=== PATIENT | female | born 1945 | race Caucasian/White ===

== ENCOUNTER 2017-04-18 10:27 | Outpatient (CLI) | payer MEDICARE, BC ==
--- NOTE | 2017-04-18 11:34 | RAD ---
CHEST PA AND LATERAL: History: 71-year-old female with dyspnea. Comparison: 12-08-14 FINDINGS: Stable thoracolumbar scoliosis with some stable linear and interstitial increased markings in both l ungs including the lung bases, stable from prior study. No confluent pneumonia or overt edema. Heart size is within normal limits. IMPRESSION: Stable chronic changes. No new process. POS: OFF
== END 2017-04-18 10:28 | disposition home or self-care (01) ==
LOC: RAD 10:27
PROVIDERS: ATTEND Internal Medicine Pulmonary Disease
DX: R06.00 Dyspnea, unspecified (principal)
CPT/HCPCS: 71020

== ENCOUNTER 2017-10-23 11:59 | Outpatient (CLI) | payer MEDICARE, BC | END 2017-10-23 12:00 | disposition home or self-care (01) | LOC: BICMAMMO 11:59 | PROVIDERS: ATTEND Internal Medicine | DX: Z12.31 Encounter for screening mammogram for malignant neoplasm of breast (principal); N64.89 Other specified disorders of breast | CPT/HCPCS: 77063; 77067 ==

== ENCOUNTER 2017-12-21 12:42 | Outpatient (CLI) | payer MEDICARE, BC ==
--- NOTE | 2017-12-21 13:06 | RAD ---
PA AND LATERAL CHEST: History: Dyspnea. FINDINGS: Comparison is made with exam of 04-18-17. The heart size is stable. No lobar consolidation, pneumothoraces or pleural effusions are seen. The a kylee is tortuous. Scoliosis of the spine is again seen. There are post op changes in the lower lumbar spine. IMPRESSION: No radiographic evidence of acute cardiopulmonary process. POS: [facility]
== END 2017-12-21 12:43 | disposition home or self-care (01) ==
LOC: RAD 12:42
PROVIDERS: ATTEND Internal Medicine Pulmonary Disease
DX: R06.00 Dyspnea, unspecified (principal)
CPT/HCPCS: 71046

== ENCOUNTER 2018-01-10 14:18 | Outpatient (CLI) | payer MEDICARE, BC ==
--- NOTE | 2018-01-11 11:36 | PFT ---
PATIENT HISTORY: HEIGHT: 58 IN WEIGHT: 147 SMOKER: NA HOW LONG: NEVER PACKS PER DAY PRODUCTIVE COUGH: LUNG DISEASE: PHYSICIAN INTERPRETATION FINAL REPORT: moderate reduction in expiratory flows and vital capacity is present. Total lung capacity is increased. RV is hyperinflated. RV/TLC hyperexpanded. The patient apparently could not perform diffusing capacity. IMPRESSION: 1. Moderate chronic obstructive pulmonary disease with marked hyperinflation. 2. Unable to do a diffusing capacity. Project Associate: ANASTASIA Mid Level Clinician: ANASTASIA HARLEY
== END 2018-01-10 14:19 | disposition home or self-care (01) ==
LOC: CP 14:18
PROVIDERS: ATTEND Internal Medicine Pulmonary Disease
DX: J44.9 Chronic obstructive pulmonary disease, unspecified (principal); J98.11 Atelectasis
CPT/HCPCS: 94010; 94727

== ENCOUNTER 2018-12-06 09:08 | Outpatient (CLI) | payer MEDICARE, BC ==
--- NOTE | 2018-12-06 12:00 | RAD ---
Esophagram HISTORY: Dysphagia. FINDINGS: Air contrast and single column barium evaluation was performed. Very small sliding hiatal h ernia. Small amount of gastroesophageal reflux. There was decrease in primary and secondary peristalsis. Nonpropulsive tertiary type contractions wer e visible. A 12 mm barium tablet traversed the esophagus without holdup. Fluoroscopy time 0.7 minutes. IMPRESSION: No evidence of obstruction or mass. Small sliding hiatal hernia with small amount of gastroesophageal reflux. Presbyesophagus.
== END 2018-12-06 09:09 | disposition home or self-care (01) ==
LOC: RAD 09:08
PROVIDERS: ATTEND Physician Assistant Medical
DX: R13.10 Dysphagia, unspecified (principal); K21.9 Gastro-esophageal reflux disease without esophagitis; K44.9 Diaphragmatic hernia without obstruction or gangrene; K22.8 Other specified diseases of esophagus
CPT/HCPCS: 36415; 74220; 80053; 80061; 83036; 84439; 84443

== ENCOUNTER 2019-01-31 10:52 | Outpatient (CLI) | payer MEDICARE, BC ==
--- NOTE | 2019-01-31 11:29 | MMO ---
Bilateral MAMMO Bilat Screen [facility]. CLINICAL HISTORY: Patient is 73 years old and is seen for screening. The patient has no family history of breast cancer. The patient has no personal history of cancer. The patient has a history of right cyst aspiration at age 48 - benign. VIEWS: The views performed were: bilateral craniocaudal with tomosynthesis; bilateral mediolateral oblique with tomosynthesis; and right exaggerated craniocaudal. FILMS COMPARED: The present examination has been compared to prior imaging studies performed at [facility] on 08/18/2014, 09/17/2015, 09/22/2016 and 10/23/2017. MAMMOGRAM FINDINGS: There are scattered fibroglandular densities. There are no suspicious masses, suspicious calcifications, or new areas of architectural distortion. IMPRESSION: THERE IS NO MAMMOGRAPHIC EVIDENCE OF MALIGNANCY. A ROUTINE FOLLOW-UP MAMMOGRAM IN 1 YEAR IS RECOMMENDED. THE RESULTS OF THIS EXAM WERE SENT TO THE PATIENT. ACR BI-RADS Category 1 - Negative MAMMOGRAPHY NOTE: 1. A negative mammogram report should not delay a biopsy if a dominant of clinically suspicious mass is present. 2. Approximately 10% to 15% of breast cancers are not detected by mammography. 3. Adenosis and dense breasts may obscure an underlying neoplasm. Reported by: Amie ORTEGA Electonically Signed: [id number]
== END 2019-01-31 10:53 | disposition home or self-care (01) ==
LOC: BICMAMMO 10:52
PROVIDERS: ATTEND Internal Medicine
DX: Z12.31 Encounter for screening mammogram for malignant neoplasm of breast (principal)
CPT/HCPCS: 77063; 77067

== ENCOUNTER 2020-08-10 14:10 | Outpatient (CLI) | payer MEDICARE, BC ==
--- NOTE | 2020-08-10 14:53 | MMO ---
Bilateral MAMMO Bilat Diag [facility]. CLINICAL HISTORY: Patient is 74 years old and is seen for diagnostic exam and pain in the sub-areolar region of the right breast. The patient has no family history of breast cancer. The patient has no personal history of cancer. The patient has a history of right cyst aspiration at age 48 - benign. VIEWS: The views performed were: bilateral craniocaudal with tomosynthesis; bilateral mediolateral oblique with tomosynthesis; and bilateral mediolateral with tomosynthesis. FILMS COMPARED: The present examination has been compared to prior imaging studies performed at [facility] on 09/22/2016, 10/23/2017, 01/31/2019 and 08/10/2020. This study has been interpreted with the assistance of computer-aided detection. MAMMOGRAM FINDINGS: There are scattered fibroglandular densities. Finding 1: There is a stable focal asymmetry seen in the right breast. Finding 2: There are no mammographic or sonographic abnormalities to explain the patient's breast pain. The patient is referred back to her clinician. Negative imaging findings should not preclude biopsy if clinical findings are suspicious. There are no suspicious masses, suspicious calcifications, or new areas of architectural distortion. IMPRESSION: FINDING 2: THERE ARE NO MAMMOGRAPHIC ABNORMALITIES TO EXPLAIN THE PATIENT'S BREAST PAIN. THE PATIENT IS REFERRED BACK TO HER CLINICIAN. NEGATIVE IMAGING FINDINGS SHOULD NOT PRECLUDE BIOPSY IF CLINICAL FINDINGS ARE SUSPICIOUS. THE RESULTS OF THIS EXAM WERE SENT TO THE PATIENT. ACR BI-RADS Category 2 - Benign finding MAMMOGRAPHY NOTE: 1. A negative mammogram report should not delay a biopsy if a dominant of clinically suspicious mass is present. 2. Approximately 10% to 15% of breast cancers are not detected by mammography. 3. Adenosis and dense breasts may obscure an underlying neoplasm. Reported by: JARRETT RUBIN MD Electonically Signed: [id number]
--- NOTE | 2020-08-10 14:56 | ULT ---
EXAM: US Breast Limited Rt PROVIDED CLINICAL HISTORY: Focal right breast pain COMPARISON: None FINDINGS: Limited sonographic interrogation was performed of the right breast in the region of pain at the retr oareolar region. The sonographic appearance of the breast tissue in this region is normal. IMPRESSION: No sonographic abnormality is evident in the region of clinical concern. Negative imaging findings sh ould not preclude further evaluation of a clinically suspicious finding. Patient is referred back to her clinician.
== END 2020-08-10 14:11 | disposition home or self-care (01) ==
LOC: BICMAMMO 14:10
PROVIDERS: ATTEND Internal Medicine
DX: N64.4 Mastodynia (principal)
CPT/HCPCS: 76642; 77066; G0279

== ENCOUNTER 2020-12-07 13:18 | Outpatient (CLI) | payer MEDICARE, BC | END 2020-12-07 13:19 | disposition home or self-care (01) | LOC: BICRAD 13:18 | PROVIDERS: ATTEND Internal Medicine Pulmonary Disease | DX: R06.00 Dyspnea, unspecified (principal) | CPT/HCPCS: 71046 ==

== ENCOUNTER 2022-02-25 10:49 | Outpatient (CLI) | payer MEDICARE, BC | END 2022-02-25 10:50 | disposition home or self-care (01) | LOC: RAD 10:49 | PROVIDERS: ATTEND Internal Medicine | DX: J45.50 Severe persistent asthma, uncomplicated (principal); J30.9 Allergic rhinitis, unspecified | CPT/HCPCS: 71046 ==

== ENCOUNTER 2023-02-21 10:25 | Outpatient (CLI) | payer MEDICARE, BC | END 2023-02-21 10:26 | disposition home or self-care (01) | LOC: RAD 10:25 | PROVIDERS: ATTEND Internal Medicine | DX: M54.50 Low back pain, unspecified (principal); M79.652 Pain in left thigh; M25.552 Pain in left hip; M47.816 Spondylosis without myelopathy or radiculopathy, lumbar region; I70.0 Atherosclerosis of aorta; Z98.890 Other specified postprocedural states | CPT/HCPCS: 72100 ==

== ENCOUNTER 2023-02-26 23:46 | Inpatient (IN) | payer MEDICARE, BC ==
[2023-02-27 00:35] LABS: #Monocytes 0.1 thou/uL (0.11-0.59); #Neutrophils 3.5 thou/uL (1.40-6.50); %Basophils 0.2 % (0.0-1.0); %Lymphocytes 16.7 % (21.0-51.0); %Monocytes 2.5 % (0.0-10.0); %Neutrophils 80.4 % (42.0-75.0); Hemoglobin 15.9 g/dL (12.0-16.0); Mean Corpuscular HGB CONC 32.4 g/dL (32.0-36.0); Mean Corpuscular Hemoglobin 28.3 pg (27.0-31.0); Mean Corpuscular Volume 87.2 fl (78.0-98.0); Mean Platelet Volume 9.5 fL (7.4-10.4); Platelet Count 347 10x3/uL (130-400); RBC Distribution Width 13.1 % (11.5-14.5); Red Blood Cell (RBC) Count 5.62 mill/uL (4.20-5.40); White Blood Cell (WBC) Count 4.4 10x3/uL (4.8-10.8)
[2023-02-27 00:48] LABS: INR-International Normal Ratio 0.9; Prothrombin Time 12.4 sec (12.0-14.7)
[2023-02-27] MEDS ORDERED: Acetaminophen 325 MG TAB PO PRN (00:59)
[2023-02-27] MEDS ORDERED: Ondansetron PF 4 MG/2 ML Vial IVP PRN (00:59)
[2023-02-27] MEDS ORDERED: niCARdipine 25 MG in Sodium Chloride 0.9% 250 ML 250 ML IVPB PRN (00:59)
[2023-02-27] MEDS ORDERED: Ondansetron ODT 4 MG TAB PO PRN (00:59)
[2023-02-27] MEDS ORDERED: Acetaminophen 650 MG Suppository PR PRN (00:59)
[2023-02-27 01:02] LABS: ALT (SGPT) 19 U/L (8-55); AST (SGOT) 71 U/L (5-34); Albumin 4.4 g/dL (3.4-4.8); Alkaline Phosphatase 59 U/L (40-110); Anion Gap 17 mmol/L (10-20); BUN (Urea Nitrogen) 15 mg/dL (9.8-20.1); Bilirubin, Total 0.2 mg/dL (0.2-1.2); Calc. Creatinine Clearance 0 mL/min (70-130); Calcium 10.1 mg/dL (7.8-10.44); Carbon Dioxide 25 mmol/L (23-31); Chloride 101 mmol/L (98-107); Estimated GFR 86; Globulin 3.3 g/dL (2.4-3.5); Glucose 176 mg/dL (83-110); Protein, Total 7.7 g/dL (5.8-8.1); Sodium 139 mmol/L (136-145)
[2023-02-27 04:00] LABS: #Monocytes 0.1 thou/uL (0.11-0.59); #Neutrophils 2.4 thou/uL (1.40-6.50); %Basophils 0.3 % (0.0-1.0); %Lymphocytes 28.3 % (21.0-51.0); %Monocytes 3.6 % (0.0-10.0); %Neutrophils 67.8 % (42.0-75.0); Hematocrit 48.7 % (36.0-47.0); Hemoglobin 15.6 g/dL (12.0-16.0); Mean Corpuscular Hemoglobin 28.1 pg (27.0-31.0); Mean Corpuscular Volume 87.7 fl (78.0-98.0); Mean Platelet Volume 9.4 fL (7.4-10.4); Platelet Count 340 10x3/uL (130-400); RBC Distribution Width 12.9 % (11.5-14.5); Red Blood Cell (RBC) Count 5.55 mill/uL (4.20-5.40); White Blood Cell (WBC) Count 3.6 10x3/uL (4.8-10.8)
[2023-02-27] MEDS ORDERED: Ipratropium/Albuterol 3 ML NEB NEB PRN (04:06)
[2023-02-27 05:10] LABS: Anion Gap 17 mmol/L (10-20); BUN (Urea Nitrogen) 14 mg/dL (9.8-20.1); Calc. Creatinine Clearance 47 mL/min (70-130); Carbon Dioxide 21 mmol/L (23-31); Cardiac Risk 4.1 (Less than 4.5); Chloride 103 mmol/L (98-107); Cholesterol 176 mg/dl (< 200 Desired); Estimated GFR 89; Glucose 164 mg/dL (83-110); HDL Cholesterol 43 mg/dL (>60 Neg Risk); LDL Cholesterol, Calculated 111 mg/dL; Potassium 3.7 mmol/L (3.5-5.1); Sodium 137 mmol/L (136-145); Triglycerides 112 mg/dL (Less than 150)
[2023-02-27] MEDS: NIFEdipine XL 60 MG TAB PO SCH (11:02)
[2023-02-27] MEDS ORDERED: Labetalol HCl 100 MG/20 ML VIAL SLOW IVP PRN (11:30)
[2023-02-27] MEDS: Carvedilol 3.125 MG TAB PO SCH (16:10)
[2023-02-27] MEDS ORDERED: Carvedilol 3.125 MG TAB PO SCH (17:00)
[2023-02-27] MEDS ORDERED: ALPRAZolam 0.5 MG TAB PO PRN (19:01)
[2023-02-27] MEDS ORDERED: Mometasone 200 MCG/Formoterol 5 MCG 120 PUFF INHALER INH SCH (19:15)
[2023-02-27] MEDS ORDERED: Non-Formulary Item 1 EACH (Budesonide-Formoterol [Symbicort 160-4.5] 160 MG/4.5 MG Aer) NEB SCH (21:00)
[2023-02-28] MEDS: Mometasone 200 MCG/Formoterol 5 MCG 120 PUFF INHALER INH SCH ×2 (06:14→19:01)
[2023-02-28 07:06] LABS: #Monocytes 1.1 thou/uL (0.11-0.59); %Basophils 0.2 % (0.0-1.0); %Eosinophils 0.2 % (0.0-10.0); %Lymphocytes 32.2 % (21.0-51.0); %Monocytes 12.2 % (0.0-10.0); %Neutrophils 54.9 % (42.0-75.0); Hematocrit 49.3 % (36.0-47.0); Hemoglobin 15.2 g/dL (12.0-16.0); Mean Corpuscular HGB CONC 30.8 g/dL (32.0-36.0); Mean Corpuscular Hemoglobin 28.1 pg (27.0-31.0); Mean Corpuscular Volume 91.3 fl (78.0-98.0); Mean Platelet Volume 9.1 fL (7.4-10.4); Platelet Count 341 10x3/uL (130-400); RBC Distribution Width 13.2 % (11.5-14.5)
[2023-02-28 07:19] LABS: ALT (SGPT) 19 U/L (8-55); AST (SGOT) 47 U/L (5-34); Albumin 3.7 g/dL (3.4-4.8); Alkaline Phosphatase 46 U/L (40-110); Anion Gap 13 mmol/L (10-20); BUN (Urea Nitrogen) 23 mg/dL (9.8-20.1); Bilirubin, Total 0.4 mg/dL (0.2-1.2); Calc. Creatinine Clearance 47 mL/min (70-130); Carbon Dioxide 26 mmol/L (23-31); Chloride 104 mmol/L (98-107); Estimated GFR 86; Globulin 3.2 g/dL (2.4-3.5); Glucose 123 mg/dL (83-110); Magnesium 2.1 mg/dL (1.6-2.6); Potassium 4.1 mmol/L (3.5-5.1); Protein, Total 6.9 g/dL (5.8-8.1); Sodium 139 mmol/L (136-145)
[2023-02-28] MEDS: Carvedilol 3.125 MG TAB PO SCH ×2 (08:35→16:45)
[2023-02-28] MEDS: NIFEdipine XL 60 MG TAB PO SCH (08:35)
[2023-02-28] MEDS: Montelukast Sodium 10 mg Tablet PO SCH (08:36)
[2023-02-28] MEDS: Rosuvastatin 10 MG TAB PO SCH (08:36)
[2023-02-28] MEDS ORDERED: Carvedilol 3.125 MG TAB PO SCH (16:45)
[2023-02-28] MEDS: Sodium Chloride 0.9% 1,000 ML IV SCH (17:01)
[2023-03-01] MEDS: Sodium Chloride 0.9% 1,000 ML IV SCH ×2 (03:40→20:20)
[2023-03-01 04:29] LABS: #Eosinphils 0.1 thou/uL (0.0-0.7); #Monocytes 1.3 thou/uL (0.11-0.59); #Neutrophils 4.2 thou/uL (1.40-6.50); %Basophils 0.3 % (0.0-1.0); %Lymphocytes 36.9 % (21.0-51.0); %Monocytes 14.1 % (0.0-10.0); %Neutrophils 47.5 % (42.0-75.0); Hematocrit 43.9 % (36.0-47.0); Hemoglobin 13.4 g/dL (12.0-16.0); Mean Corpuscular HGB CONC 30.5 g/dL (32.0-36.0); Mean Corpuscular Hemoglobin 28.5 pg (27.0-31.0); Mean Corpuscular Volume 93.4 fl (78.0-98.0); Mean Platelet Volume 9.6 fL (7.4-10.4); Platelet Count 321 10x3/uL (130-400); RBC Distribution Width 13.1 % (11.5-14.5); White Blood Cell (WBC) Count 8.9 10x3/uL (4.8-10.8)
[2023-03-01 04:56] LABS: Anion Gap 12 mmol/L (10-20); BUN (Urea Nitrogen) 21 mg/dL (9.8-20.1); Calc. Creatinine Clearance 55 mL/min (70-130); Calcium 9.3 mg/dL (7.8-10.44); Carbon Dioxide 24 mmol/L (23-31); Chloride 106 mmol/L (98-107); Estimated GFR 91; Glucose 116 mg/dL (83-110); Magnesium 1.9 mg/dL (1.6-2.6); Potassium 4.2 mmol/L (3.5-5.1); Sodium 138 mmol/L (136-145)
[2023-03-01] MEDS: Mometasone 200 MCG/Formoterol 5 MCG 120 PUFF INHALER INH SCH ×2 (08:55→18:54)
[2023-03-01] MEDS: Montelukast Sodium 10 mg Tablet PO SCH (08:57)
[2023-03-01] MEDS: Rosuvastatin 10 MG TAB PO SCH (08:57)
[2023-03-01] MEDS: Carvedilol 3.125 MG TAB PO SCH ×3 (08:57→17:55)
[2023-03-01] MEDS: Acetaminophen 500 MG TAB PO SCH ×2 (13:56→20:49)
[2023-03-01] MEDS ORDERED: Levothyroxine Sodium 75 MCG TAB PO SCH (14:00)
[2023-03-02] MEDS ORDERED: Acetaminophen 325 MG TAB PO SCH (04:15)
[2023-03-02 05:16] VITALS: BMI 21.5
[2023-03-02 07:39] LABS: Anion Gap 13 mmol/L (10-20); BUN (Urea Nitrogen) 12 mg/dL (9.8-20.1); Calc. Creatinine Clearance 61 mL/min (70-130); Calcium 9.4 mg/dL (7.8-10.44); Carbon Dioxide 25 mmol/L (23-31); Chloride 107 mmol/L (98-107); Estimated GFR 93; Glucose 116 mg/dL (83-110); Magnesium 1.8 mg/dL (1.6-2.6); Phosphorus 2.1 mg/dL (2.3-4.7); Potassium 3.8 mmol/L (3.5-5.1); Sodium 141 mmol/L (136-145)
[2023-03-02] MEDS ORDERED: Furosemide 20 MG/2 ML VIAL SLOW IVP SCH ×2 (07:57→14:00)
[2023-03-02] MEDS: Acetaminophen 500 MG TAB PO SCH ×3 (08:22→21:42)
[2023-03-02] MEDS: Carvedilol 3.125 MG TAB PO SCH ×2 (08:24→17:00)
[2023-03-02] MEDS: NIFEdipine XL 60 MG TAB PO SCH (08:24)
[2023-03-02] MEDS: Montelukast Sodium 10 mg Tablet PO SCH (08:24)
[2023-03-02] MEDS: Rosuvastatin 10 MG TAB PO SCH (08:25)
[2023-03-02] MEDS: Levothyroxine Sodium 75 MCG TAB PO SCH (08:25)
[2023-03-02] MEDS ORDERED: ALPRAZolam 0.5 MG TAB PO PRN (08:59)
[2023-03-02] MEDS ORDERED: Potassium Bicarbonate/Cit Ac 20 MEQ TAB PO SCH ×2 (10:00→14:00)
[2023-03-02] MEDS: Mometasone 200 MCG/Formoterol 5 MCG 120 PUFF INHALER INH SCH ×2 (10:02→19:02)
[2023-03-02 11:06] LABS: Actual Bicarbonate (HCO3a) 28.9 mEq/L (22-28); Base Excess (BEa) 2.6 mEq/L (-2.0 to +3.0); Calcium, Ionized (arterial) 1.23 mmol/L (1.12-1.30); Carboxyhemoglobin (COHb) 0.6 gm% (0.0-3.0); Hematocrit-ABG 44 % (36.0-47.0); Potassium - ABG Lab 3.75 mmol/L (3.70-5.30); pH, Arterial 7.371 (7.35-7.45)
[2023-03-02 11:08] LABS: O2 Tension (PaO2), arterial 54.8 mmHg (> 70.0); Puncture Site RRA
[2023-03-02] MEDS ORDERED: Furosemide 20 MG/2 ML VIAL IVPB SCH (16:00)
[2023-03-02] MEDS: Potassium Chloride 10 MEQ in Premix Bag 1 BAG IVPB SCH ×2 (18:38→21:44)
[2023-03-02] MEDS ORDERED: Mirtazapine 15 MG Soltab PO SCH (21:00)
[2023-03-02] MEDS: traZODone HCl 50 MG TAB PO PRN (21:43)
[2023-03-02] MEDS: Mirtazapine 15 MG Soltab PO SCH (21:43)
[2023-03-03 04:36] LABS: Anion Gap 17 mmol/L (10-20); BUN (Urea Nitrogen) 15 mg/dL (9.8-20.1); Calc. Creatinine Clearance 54 mL/min (70-130); Calcium 9.8 mg/dL (7.8-10.44); Carbon Dioxide 24 mmol/L (23-31); Chloride 102 mmol/L (98-107); Estimated GFR 91; Glucose 85 mg/dL (83-110); Magnesium 1.8 mg/dL (1.6-2.6); Potassium 3.7 mmol/L (3.5-5.1); Sodium 139 mmol/L (136-145)
[2023-03-03] MEDS: Mometasone 200 MCG/Formoterol 5 MCG 120 PUFF INHALER INH SCH ×2 (07:14→19:20)
[2023-03-03] MEDS ORDERED: Escitalopram Oxalate 10 mg Tablet PO SCH (09:00)
[2023-03-03] MEDS: NIFEdipine XL 60 MG TAB PO SCH ×2 (10:23→10:55)
[2023-03-03] MEDS: Acetaminophen 500 MG TAB PO SCH ×4 (10:23→20:44)
[2023-03-03] MEDS: Montelukast Sodium 10 mg Tablet PO SCH ×2 (10:23→10:54)
[2023-03-03] MEDS: Carvedilol 3.125 MG TAB PO SCH ×2 (10:24→17:39)
[2023-03-03] MEDS: Rosuvastatin 10 MG TAB PO SCH ×2 (10:24→10:55)
[2023-03-03] MEDS: Levothyroxine Sodium 75 MCG TAB PO SCH (10:25)
[2023-03-03] MEDS ORDERED: Sodium Chloride 0.9% 1,000 ML IV SCH (18:30)
[2023-03-03] MEDS: Ipratropium/Albuterol 3 ML NEB NEB PRN (19:16)
[2023-03-03] MEDS: Mirtazapine 15 MG Soltab PO SCH (20:44)
[2023-03-04 05:08] LABS: #Basophils 0.1 thou/uL (0.0-0.2); #Eosinphils 0.5 thou/uL (0.0-0.7); #Monocytes 1.2 thou/uL (0.11-0.59); %Basophils 0.8 % (0.0-1.0); %Eosinophils 5.8 % (0.0-10.0); %Lymphocytes 25.1 % (21.0-51.0); %Monocytes 13.1 % (0.0-10.0); %Neutrophils 54.9 % (42.0-75.0); Hematocrit 43.4 % (36.0-47.0); Hemoglobin 13.5 g/dL (12.0-16.0); Mean Corpuscular HGB CONC 31.1 g/dL (32.0-36.0); Mean Corpuscular Hemoglobin 28.5 pg (27.0-31.0); Mean Corpuscular Volume 91.6 fl (78.0-98.0); Mean Platelet Volume 9.6 fL (7.4-10.4); Platelet Count 389 10x3/uL (130-400); RBC Distribution Width 12.8 % (11.5-14.5); Red Blood Cell (RBC) Count 4.74 mill/uL (4.20-5.40); White Blood Cell (WBC) Count 9.1 10x3/uL (4.8-10.8)
[2023-03-04 05:31] LABS: Anion Gap 16 mmol/L (10-20); BUN (Urea Nitrogen) 14 mg/dL (9.8-20.1); Calc. Creatinine Clearance 71 mL/min (70-130); Calcium 9.2 mg/dL (7.8-10.44); Carbon Dioxide 20 mmol/L (23-31); Chloride 107 mmol/L (98-107); Estimated GFR 94; Glucose 70 mg/dL (83-110); Phosphorus 1.9 mg/dL (2.3-4.7); Potassium 3.7 mmol/L (3.5-5.1); Sodium 139 mmol/L (136-145)
[2023-03-04] MEDS: Levothyroxine Sodium 75 MCG TAB PO SCH (06:18)
[2023-03-04] MEDS: Mometasone 200 MCG/Formoterol 5 MCG 120 PUFF INHALER INH SCH ×2 (06:49→19:15)
[2023-03-04] MEDS: Carvedilol 3.125 MG TAB PO SCH ×2 (07:34→16:22)
[2023-03-04] MEDS: Acetaminophen 500 MG TAB PO SCH ×2 (07:35→15:37)
[2023-03-04] MEDS: Montelukast Sodium 10 mg Tablet PO SCH (07:35)
[2023-03-04] MEDS: NIFEdipine XL 60 MG TAB PO SCH (07:35)
[2023-03-04] MEDS: Rosuvastatin 10 MG TAB PO SCH (07:35)
[2023-03-04] MEDS: Lisinopril 10 MG TAB PO SCH (10:55)
[2023-03-04 16:05] LABS: Bilirubin Negative (Negative); Blood, Urine 1+ (Negative); CAUTI Indications for Culture Alt mental st,lethar; Clarity Turbid (Clear); Glucose, Urine (Dipstick) Normal (Negative); Ketone, Urine Greater than 150 mg/dL (Negative); Leukocyte 500 Leu/uL (Negative); Nitrite 2+ (Negative); Protein, Urine (Dipstick) 30 mg/dL (Neg-Trace); RBC/HPF 0-3 HPF (0-3); Specific Gravity, Urine 1.024 (1.002-1.036); Squamous Epithelial 0-3 HPF (0-3); Urobilinogen Normal mg/dL (Less than 2); WBC/HPF Greater than 50 HPF (0-3)
[2023-03-04 16:06] LABS: Bacteria/HPF 1+ HPF (None Seen); Urine Culture Reflex Yes Yes
[2023-03-04] MEDS: Mirtazapine 15 MG Soltab PO SCH (20:22)
[2023-03-04] MEDS: ALPRAZolam 0.25 MG TAB PO PRN (20:23)
[2023-03-05 04:55] LABS: Phosphorus 2.7 mg/dL (2.3-4.7)
[2023-03-05] MEDS: Levothyroxine Sodium 75 MCG TAB PO SCH (05:38)
[2023-03-05] MEDS: Mometasone 200 MCG/Formoterol 5 MCG 120 PUFF INHALER INH SCH ×2 (06:44→18:55)
[2023-03-05] MEDS: Rosuvastatin 10 MG TAB PO SCH (09:39)
[2023-03-05] MEDS: Carvedilol 3.125 MG TAB PO SCH (09:39)
[2023-03-05] MEDS: Lisinopril 10 MG TAB PO SCH (09:39)
[2023-03-05] MEDS: Montelukast Sodium 10 mg Tablet PO SCH (09:39)
[2023-03-05] MEDS: NIFEdipine XL 60 MG TAB PO SCH (09:39)
[2023-03-05] MEDS ORDERED: Polyethylene Glycol 3350 17 GM Packet PO SCH (12:28)
[2023-03-05] MEDS ORDERED: Polyethylene Glycol 3350 17 GM Packet PO PRN (12:45)
[2023-03-05] MEDS: Acetaminophen 325 MG TAB PO PRN ×2 (14:34→20:17)
[2023-03-05] MEDS: Carvedilol 6.25 MG TAB PO SCH (16:12)
[2023-03-05] MEDS: cefTRIAXone\\ROCEPHIN 1 GM in Sodium Chloride 0.9% 100 ML IVPB SCH (16:12)
[2023-03-05] MEDS: Senokot S 8.6-50 MG TAB PO SCH (20:17)
[2023-03-05] MEDS: ALPRAZolam 0.25 MG TAB PO PRN (20:17)
[2023-03-05] MEDS: Mirtazapine 15 MG Soltab PO SCH (20:17)
[2023-03-06] MEDS: Levothyroxine Sodium 75 MCG TAB PO SCH (05:17)
[2023-03-06 05:33] LABS: Phosphorus 2.6 mg/dL (2.3-4.7)
[2023-03-06] MEDS: Mometasone 200 MCG/Formoterol 5 MCG 120 PUFF INHALER INH SCH ×2 (07:43→18:57)
[2023-03-06] MEDS: Polyethylene Glycol 3350 17 GM Packet PO SCH (10:07)
[2023-03-06] MEDS: Senokot S 8.6-50 MG TAB PO SCH ×2 (10:07→20:42)
[2023-03-06] MEDS: Rosuvastatin 10 MG TAB PO SCH (10:07)
[2023-03-06] MEDS: NIFEdipine XL 60 MG TAB PO SCH (10:07)
[2023-03-06] MEDS: Lisinopril 10 MG TAB PO SCH (10:08)
[2023-03-06] MEDS: Montelukast Sodium 10 mg Tablet PO SCH (10:08)
[2023-03-06] MEDS: Carvedilol 6.25 MG TAB PO SCH ×2 (10:08→17:37)
[2023-03-06] MEDS: Acetaminophen 325 MG TAB PO PRN (12:13)
[2023-03-06] MEDS: cefTRIAXone\\ROCEPHIN 1 GM in Sodium Chloride 0.9% 100 ML IVPB SCH (15:37)
[2023-03-06] MEDS: Ipratropium/Albuterol 3 ML NEB NEB PRN (18:05)
[2023-03-06] MEDS: Mirtazapine 15 MG Soltab PO SCH (20:42)
[2023-03-07] MEDS: Levothyroxine Sodium 75 MCG TAB PO SCH (06:04)
[2023-03-07] MEDS: Mometasone 200 MCG/Formoterol 5 MCG 120 PUFF INHALER INH SCH ×2 (07:08→18:44)
[2023-03-07] MEDS: Spironolactone 25 MG TAB PO SCH (10:24)
[2023-03-07] MEDS: Montelukast Sodium 10 mg Tablet PO SCH (10:25)
[2023-03-07] MEDS: Rosuvastatin 10 MG TAB PO SCH (10:25)
[2023-03-07] MEDS: Senokot S 8.6-50 MG TAB PO SCH ×2 (10:26→20:39)
[2023-03-07] MEDS: Empagliflozin 10 MG TAB PO SCH (10:26)
[2023-03-07] MEDS: Polyethylene Glycol 3350 17 GM Packet PO SCH (10:26)
[2023-03-07] MEDS: Carvedilol 6.25 MG TAB PO SCH ×2 (10:27→17:15)
[2023-03-07] MEDS: LevoFLOXacin 750 mg/D5W 750 MG in Premix Bag 1 BAG IVPB SCH (10:28)
[2023-03-07] MEDS: Acetaminophen 325 MG TAB PO PRN (12:21)
[2023-03-07] MEDS: Ipratropium/Albuterol 3 ML NEB NEB PRN (18:44)
[2023-03-07] MEDS: Mirtazapine 15 MG Soltab PO SCH (20:37)
[2023-03-07] MEDS: Sacubitril 24MG/Valsartan 26 MG TAB PO SCH (20:39)
[2023-03-07] MEDS: traZODone HCl 50 MG TAB PO PRN (22:59)
[2023-03-08 04:42] LABS: Anion Gap 12 mmol/L (10-20); BUN (Urea Nitrogen) 15 mg/dL (9.8-20.1); Calc. Creatinine Clearance 54 mL/min (70-130); Calcium 9.8 mg/dL (7.8-10.44); Carbon Dioxide 29 mmol/L (23-31); Chloride 102 mmol/L (98-107); Estimated GFR 90; Glucose 120 mg/dL (83-110); Potassium 4.1 mmol/L (3.5-5.1); Sodium 139 mmol/L (136-145)
[2023-03-08] MEDS: Levothyroxine Sodium 75 MCG TAB PO SCH (06:12)
[2023-03-08] MEDS: Mometasone 200 MCG/Formoterol 5 MCG 120 PUFF INHALER INH SCH ×2 (07:22→18:23)
[2023-03-08] MEDS ORDERED: Carvedilol 6.25 MG TAB PO SCH (08:00)
[2023-03-08 08:07] LABS: Anion Gap 10 mmol/L (10-20); BUN (Urea Nitrogen) 15 mg/dL (9.8-20.1); Calc. Creatinine Clearance 56 mL/min (70-130); Calcium 9.7 mg/dL (7.8-10.44); Carbon Dioxide 31 mmol/L (23-31); Chloride 102 mmol/L (98-107); Estimated GFR 91; Glucose 114 mg/dL (83-110); Potassium 4.1 mmol/L (3.5-5.1); Sodium 139 mmol/L (136-145)
[2023-03-08] MEDS: LevoFLOXacin 750 mg/D5W 750 MG in Premix Bag 1 BAG IVPB SCH (09:49)
[2023-03-08] MEDS: Empagliflozin 10 MG TAB PO SCH (09:50)
[2023-03-08] MEDS: Rosuvastatin 10 MG TAB PO SCH (09:50)
[2023-03-08] MEDS: Montelukast Sodium 10 mg Tablet PO SCH (09:50)
[2023-03-08] MEDS: Acetaminophen 325 MG TAB PO PRN (09:51)
[2023-03-08] MEDS: Spironolactone 25 MG TAB PO SCH (09:51)
[2023-03-08] MEDS: Sacubitril 24MG/Valsartan 26 MG TAB PO SCH (09:52)
[2023-03-08] MEDS: Senokot S 8.6-50 MG TAB PO SCH (09:52)
[2023-03-08] MEDS: Polyethylene Glycol 3350 17 GM Packet PO SCH (09:53)
[2023-03-08 16:35] VITALS: BP 139/86; TEMP 98.2
== END 2023-03-08 18:54 | DRG 64 ==
LOC: ERS 23:46 → CCU 02-27 00:47 → 2NO 03-03 06:26
PROVIDERS: ADMIT Student in an Organized Health Care Education/Training Program; ATTEND Internal Medicine
PROC: 4A033R1 Measurement of Arterial Saturation, Peripheral, Percutaneous Approach (ICD-10-PCS; principal; 2023-03-02)
PROC: 5A09357 Assistance with Respiratory Ventilation, Less than 24 Consecutive Hours, Continuous Positive Airway Pressure (ICD-10-PCS; 2023-03-02)
PROC: 5A0935A Assistance with Respiratory Ventilation, Less than 24 Consecutive Hours, High Flow/Velocity Cannula (ICD-10-PCS; 2023-03-03)
DX: I61.1 Nontraumatic intracerebral hemorrhage in hemisphere, cortical (principal); G93.41 Metabolic encephalopathy; G93.6 Cerebral edema; U07.1 COVID-19; I50.23 Acute on chronic systolic (congestive) heart failure; J18.9 Pneumonia, unspecified organism; I21.3 ST elevation (STEMI) myocardial infarction of unspecified site; N39.0 Urinary tract infection, site not specified; I51.81 Takotsubo syndrome; J45.909 Unspecified asthma, uncomplicated; F10.90 Alcohol use, unspecified, uncomplicated; F41.0 Panic disorder [episodic paroxysmal anxiety]; I11.0 Hypertensive heart disease with heart failure; K59.00 Constipation, unspecified; Z88.0 Allergy status to penicillin; Z88.2 Allergy status to sulfonamides; Z79.890 Hormone replacement therapy; Z79.899 Other long term (current) drug therapy; Z98.1 Arthrodesis status; Z98.890 Other specified postprocedural states; Z86.73 Personal history of transient ischemic attack (TIA), and cerebral infarction without residual deficits; E03.9 Hypothyroidism, unspecified; E78.00 Pure hypercholesterolemia, unspecified; B96.5 Pseudomonas (aeruginosa) (mallei) (pseudomallei) as the cause of diseases classified elsewhere
CPT/HCPCS: 36415; 36416; 36600; 70450; 71045; 80048; 80053; 80061; 81001; 82805; 83735; 83880; 84100; 84484; 85025; 85610; 87086; 93005; 93010; 93306; 94640; 94660; 94664; 94760; J0696; J1642; J1940; J1956; J2405; J3480; J3490; J7050; J7620

== ENCOUNTER 2023-12-14 15:07 | Outpatient (CLI) | payer MEDICARE | END 2023-12-14 15:08 | disposition home or self-care (01) | LOC: RAD 15:07 | PROVIDERS: ATTEND Internal Medicine | DX: J45.909 Unspecified asthma, uncomplicated (principal) | CPT/HCPCS: 71046 ==

== ENCOUNTER 2024-01-13 00:06 | Inpatient (IN) | payer MEDICARE, BC ==
[2024-01-13 03:51] VITALS: BMI 25.1
[2024-01-13] MEDS ORDERED: Acetaminophen 650 MG Suppository PR PRN (04:39)
[2024-01-13 05:44] LABS: #Basophils 0.03 10x3/uL (0.0-0.2); #Eosinphils Less than 0.03 10x3/uL (0.0-0.7); %Basophils 0.3 % (0.0-1.0); %Lymphocytes 7.4 % (21.0-51.0); %Monocytes 3.2 % (0.0-10.0); %Neutrophils 88.3 % (42.0-75.0); Hematocrit 37.7 % (36.0-47.0); Hemoglobin 11.9 g/dL (12.0-16.0); Mean Corpuscular HGB CONC 31.6 g/dL (32.0-36.0); Mean Corpuscular Hemoglobin 29.5 pg (27.0-31.0); Mean Corpuscular Volume 93.3 fL (78.0-98.0); Mean Platelet Volume 9.3 fL (7.4-10.4); Platelet Count 359 10x3/uL (130-400); RBC Distribution Width 12.9 % (11.5-14.5); Red Blood Cell (RBC) Count 4.04 mill/uL (4.20-5.40)
[2024-01-13 05:58] LABS: Anion Gap 15 mmol/L (10-20); BUN (Urea Nitrogen) 11 mg/dL (9.8-20.1); Calc. Creatinine Clearance 56 mL/min (70-130); Calcium 8.8 mg/dL (7.8-10.44); Carbon Dioxide 23 mmol/L (23-31); Chloride 106 mmol/L (98-107); Estimated GFR 89; Glucose 191 mg/dL (83-110); Potassium 3.9 mmol/L (3.5-5.1); Sodium 140 mmol/L (136-145)
[2024-01-13] MEDS: Ipratropium/Albuterol 3 ML NEB NEB SCH (06:53)
[2024-01-13] MEDS: Enoxaparin 40 MG (0.4 mL) SYRINGE SC SCH (08:25)
[2024-01-13] MEDS: methylPREDNISolone Sod Succ 40 MG VIAL IVP SCH (08:26)
[2024-01-13] MEDS: Acetaminophen 325 MG TAB PO PRN (08:31)
[2024-01-13] MEDS: Ondansetron ODT 4 MG TAB PO PRN (12:50)
[2024-01-13] MEDS: HYDROcodone/Acetaminophen 5/325 mg Tablet PO PRN (12:50)
[2024-01-13] MEDS ORDERED: Glucagon 1 MG/ML KIT IM PRN (13:58)
[2024-01-13] MEDS ORDERED: Dextrose 5% in Water 1,000 ML IV PRN (13:58)
[2024-01-13] MEDS ORDERED: Dextrose 50% Abboject 50 ML SYRINGE SLOW IVP PRN (13:58)
[2024-01-13] MEDS ORDERED: Insulin Lispro 100 UNIT/ML 10 ML VIAL SC PRN (14:03)
[2024-01-13] MEDS: Morphine 4 MG/ML VIAL SLOW IVP PRN (16:03)
[2024-01-13] MEDS: Ondansetron PF 4 MG/2 ML Vial IVP PRN (17:10)
[2024-01-13] MEDS: Rosuvastatin 10 MG TAB PO SCH (21:58)
[2024-01-13] MEDS: Sacubitril 24MG/Valsartan 26 MG TAB PO SCH (21:59)
[2024-01-13] MEDS: Promethazine HCl 12.5 MG in Sodium Chloride 0.9% 50 ML IVPB SCH (22:52)
[2024-01-14 04:56] LABS: #Basophils 0.06 10x3/uL (0.0-0.2); %Basophils 0.5 % (0.0-1.0); %Eosinophils 0.4 % (0.0-10.0); %Monocytes 14.2 % (0.0-10.0); %Neutrophils 69.4 % (42.0-75.0); Hematocrit 35.9 % (36.0-47.0); Hemoglobin 11.2 g/dL (12.0-16.0); Mean Corpuscular HGB CONC 31.2 g/dL (32.0-36.0); Mean Corpuscular Hemoglobin 28.8 pg (27.0-31.0); Mean Corpuscular Volume 92.3 fL (78.0-98.0); Mean Platelet Volume 9.6 fL (7.4-10.4); Platelet Count 377 10x3/uL (130-400); RBC Distribution Width 13.1 % (11.5-14.5); Red Blood Cell (RBC) Count 3.89 mill/uL (4.20-5.40)
[2024-01-14 05:39] LABS: Anion Gap 11 mmol/L (10-20); BUN (Urea Nitrogen) 15 mg/dL (9.8-20.1); Calc. Creatinine Clearance 59 mL/min (70-130); Calcium 9.3 mg/dL (7.8-10.44); Carbon Dioxide 26 mmol/L (23-31); Chloride 103 mmol/L (98-107); Estimated GFR 90; Glucose 128 mg/dL (83-110); Potassium 3.8 mmol/L (3.5-5.1); Sodium 136 mmol/L (136-145)
[2024-01-14] MEDS: Levothyroxine Sodium 75 MCG TAB PO SCH (06:40)
[2024-01-14] MEDS: NIFEdipine XL 60 MG ER.TAB PO SCH (08:59)
[2024-01-14] MEDS: Montelukast Sodium 10 mg Tablet PO SCH (08:59)
[2024-01-14] MEDS: Sodium Chloride 0.9% 1,000 ML IV SCH (18:55)
[2024-01-14] MEDS: Morphine 2 MG/ML VIAL SLOW IVP PRN (20:16)
[2024-01-14] MEDS: PARoxetine 20 MG TAB PO SCH (20:16)
[2024-01-14] MEDS ORDERED: Non-Formulary Item 1 EACH (Paroxetine Hcl [Paroxetine Hcl] 10 MG Tablet) PO SCH (21:00)
[2024-01-15] MEDS: Enoxaparin 40 MG (0.4 mL) SYRINGE SC SCH (12:56)
[2024-01-15] MEDS: Ipratropium/Albuterol 3 ML NEB NEB PRN (16:41)
[2024-01-15] MEDS: Mometasone 200 MCG/Formoterol 5 MCG 120 PUFF INHALER INH SCH (18:39)
[2024-01-16 04:37] LABS: #Basophils 0.05 10x3/uL (0.0-0.2); %Basophils 0.4 % (0.0-1.0); %Lymphocytes 19.8 % (21.0-51.0); %Monocytes 14.7 % (0.0-10.0); %Neutrophils 63.5 % (42.0-75.0); Hematocrit 32.4 % (36.0-47.0); Hemoglobin 10.2 g/dL (12.0-16.0); Mean Corpuscular HGB CONC 31.5 g/dL (32.0-36.0); Mean Corpuscular Hemoglobin 29.1 pg (27.0-31.0); Mean Corpuscular Volume 92.3 fL (78.0-98.0); Mean Platelet Volume 9.6 fL (7.4-10.4); Platelet Count 359 10x3/uL (130-400); RBC Distribution Width 13.2 % (11.5-14.5); Red Blood Cell (RBC) Count 3.51 mill/uL (4.20-5.40)
[2024-01-16] MEDS: GUAIFENESIN SF SOLN 200 MG/10 ML UDCUP PO PRN (05:11)
[2024-01-16] MEDS: traMADol HCl 50 MG TAB PO PRN (05:11)
[2024-01-16] MEDS: Enoxaparin 40 MG (0.4 mL) SYRINGE SC SCH (09:19)
[2024-01-17] MEDS: predniSONE 20 MG TAB PO SCH (09:44)
[2024-01-17 16:00] VITALS: BP 112/58; TEMP 98.1
== END 2024-01-17 17:51 | disposition swing bed (61) | DRG 189 ==
LOC: 2NO 03:18 → OBSVTOIN 04:39
PROVIDERS: ADMIT Student in an Organized Health Care Education/Training Program; ATTEND Family Medicine
DX: J96.01 Acute respiratory failure with hypoxia (principal); S32.402A Unspecified fracture of left acetabulum, initial encounter for closed fracture; J45.901 Unspecified asthma with (acute) exacerbation; S42.202A Unspecified fracture of upper end of left humerus, initial encounter for closed fracture; S42.212A Unspecified displaced fracture of surgical neck of left humerus, initial encounter for closed fracture; E78.5 Hyperlipidemia, unspecified; S09.90XA Unspecified injury of head, initial encounter; M25.512 Pain in left shoulder; E03.9 Hypothyroidism, unspecified; I10 Essential (primary) hypertension; W19.XXXA Unspecified fall, initial encounter; Z88.0 Allergy status to penicillin; Z88.2 Allergy status to sulfonamides; Z79.890 Hormone replacement therapy; Z79.899 Other long term (current) drug therapy; Z98.890 Other specified postprocedural states; Z86.73 Personal history of transient ischemic attack (TIA), and cerebral infarction without residual deficits
CPT/HCPCS: 36415; 36416; 72192; 80048; 83735; 84443; 85025; 94640; J1650; J2270; J2272; J2405; J2550; J2920; J7050; J7512; J7620; Q0162

== ENCOUNTER 2024-03-22 09:14 | Outpatient (CLI) | payer MEDICARE, BC | END 2024-03-22 09:15 | disposition home or self-care (01) | LOC: RAD 09:14 | PROVIDERS: ATTEND Internal Medicine | DX: R06.00 Dyspnea, unspecified (principal); M41.9 Scoliosis, unspecified; I70.0 Atherosclerosis of aorta; S42.212D Unspecified displaced fracture of surgical neck of left humerus, subsequent encounter for fracture with routine healing | CPT/HCPCS: 71046 ==

== ENCOUNTER 2024-06-02 15:58 | Inpatient (IN) | payer MEDICARE, BC ==
[2024-06-02] MEDS ORDERED: hydrALAZINE 20 MG/ML VIAL SLOW IVP PRN (17:04)
[2024-06-02] MEDS ORDERED: niCARdipine 25 MG in Sodium Chloride 0.9% 250 ML 250 ML IVPB PRN (17:34)
[2024-06-02] MEDS: Labetalol HCl 100 MG/20 ML VIAL SLOW IVP PRN (18:08)
[2024-06-02 18:20] VITALS: BMI 23.6
[2024-06-02] MEDS: Sacubitril 24MG/Valsartan 26 MG TAB PO SCH (20:41)
[2024-06-02] MEDS: Rosuvastatin 10 MG TAB PO SCH (20:41)
[2024-06-02] MEDS: busPIRone HCl 10 MG TAB PO SCH (22:25)
[2024-06-02] MEDS: Acetaminophen 650 MG/20.3 ML UDCUP PO PRN (23:27)
[2024-06-03 03:34] LABS: #Basophils 0.09 10x3/uL (0.0-0.2); %Basophils 1.1 % (0.0-1.0); %Eosinophils 4.2 % (0.0-10.0); %Lymphocytes 31.7 % (21.0-51.0); %Monocytes 10.5 % (0.0-10.0); %Neutrophils 52.1 % (42.0-75.0); Hematocrit 38.7 % (36.0-47.0); Hemoglobin 11.7 g/dL (12.0-16.0); Mean Corpuscular HGB CONC 30.2 g/dL (32.0-36.0); Mean Corpuscular Hemoglobin 27.7 pg (27.0-31.0); Mean Corpuscular Volume 91.5 fL (78.0-98.0); Mean Platelet Volume 8.8 fL (7.4-10.4); Platelet Count 402 10x3/uL (130-400); RBC Distribution Width 12.9 % (11.5-14.5); Red Blood Cell (RBC) Count 4.23 mill/uL (4.20-5.40)
[2024-06-03 03:55] LABS: ALT (SGPT) 10 U/L (8-55); AST (SGOT) 16 U/L (5-34); Albumin 3.5 g/dL (3.4-4.8); Alkaline Phosphatase 55 U/L (40-110); Anion Gap 11 mmol/L (10-20); BUN (Urea Nitrogen) 10 mg/dL (9.8-20.1); Bilirubin, Total 0.3 mg/dL (0.2-1.2); Calc. Creatinine Clearance 55 mL/min (70-130); Calcium 9.4 mg/dL (7.8-10.44); Carbon Dioxide 26 mmol/L (23-31); Chloride 105 mmol/L (98-107); Estimated GFR 86; Globulin 3.1 g/dL (2.4-3.5); Glucose 115 mg/dL (83-110); Potassium 4.1 mmol/L (3.5-5.1); Protein, Total 6.6 g/dL (5.8-8.1); Sodium 138 mmol/L (136-145)
[2024-06-03] MEDS: Levothyroxine Sodium 75 MCG TAB PO SCH (06:20)
[2024-06-03] MEDS: NIFEdipine XL 90 MG ER.TAB PO SCH (08:39)
[2024-06-03] MEDS: Acetaminophen 325 MG TAB PO PRN (11:44)
[2024-06-03] MEDS: Acetaminophen 325 MG TAB ONE (11:45)
[2024-06-03] MEDS: Ipratropium Bromide 2.5 ml Neb NEB PRN (13:09)
[2024-06-03] MEDS ORDERED: Morphine 2 MG/ML VIAL SLOW IVP PRN (13:24)
[2024-06-03] MEDS: Ondansetron PF 4 MG/2 ML Vial IVP PRN (13:36)
[2024-06-03] MEDS: Mometasone 200 MCG/Formoterol 5 MCG 120 PUFF INHALER INH SCH (19:05)
[2024-06-03] MEDS: PARoxetine 20 MG TAB PO SCH (20:05)
[2024-06-04 04:26] LABS: #Basophils 0.04 10x3/uL (0.0-0.2); %Basophils 0.4 % (0.0-1.0); %Eosinophils 1.8 % (0.0-10.0); %Lymphocytes 31.4 % (21.0-51.0); %Monocytes 9.4 % (0.0-10.0); %Neutrophils 56.7 % (42.0-75.0); Hematocrit 39.4 % (36.0-47.0); Hemoglobin 12.1 g/dL (12.0-16.0); Mean Corpuscular HGB CONC 30.7 g/dL (32.0-36.0); Mean Corpuscular Hemoglobin 27.6 pg (27.0-31.0); Mean Corpuscular Volume 89.7 fL (78.0-98.0); Mean Platelet Volume 9.4 fL (7.4-10.4); Platelet Count 406 10x3/uL (130-400); RBC Distribution Width 12.9 % (11.5-14.5); Red Blood Cell (RBC) Count 4.39 mill/uL (4.20-5.40)
[2024-06-04 04:45] LABS: ALT (SGPT) 8 U/L (8-55); AST (SGOT) 16 U/L (5-34); Albumin 3.5 g/dL (3.4-4.8); Alkaline Phosphatase 57 U/L (40-110); Anion Gap 12 mmol/L (10-20); BUN (Urea Nitrogen) 14 mg/dL (9.8-20.1); Bilirubin, Total 0.3 mg/dL (0.2-1.2); Calc. Creatinine Clearance 51 mL/min (70-130); Calcium 9.7 mg/dL (7.8-10.44); Carbon Dioxide 25 mmol/L (23-31); Chloride 101 mmol/L (98-107); Estimated GFR 88; Globulin 3.1 g/dL (2.4-3.5); Glucose 105 mg/dL (83-110); Potassium 3.9 mmol/L (3.5-5.1); Protein, Total 6.6 g/dL (5.8-8.1); Sodium 134 mmol/L (136-145)
[2024-06-04] MEDS: Montelukast Sodium 10 mg Tablet PO SCH (09:25)
[2024-06-04] MEDS: Metoprolol Tartrate 25 MG TAB PO SCH (21:33)
[2024-06-05 03:29] LABS: #Basophils 0.06 10x3/uL (0.0-0.2); %Basophils 0.5 % (0.0-1.0); %Eosinophils 2.2 % (0.0-10.0); %Lymphocytes 26.3 % (21.0-51.0); %Monocytes 10.7 % (0.0-10.0); %Neutrophils 60.1 % (42.0-75.0); Hematocrit 38.8 % (36.0-47.0); Mean Corpuscular HGB CONC 30.9 g/dL (32.0-36.0); Mean Corpuscular Volume 90.4 fL (78.0-98.0); Mean Platelet Volume 8.9 fL (7.4-10.4); Platelet Count 383 10x3/uL (130-400); RBC Distribution Width 12.6 % (11.5-14.5); Red Blood Cell (RBC) Count 4.29 mill/uL (4.20-5.40)
[2024-06-05 03:52] LABS: ALT (SGPT) 8 U/L (8-55); AST (SGOT) 14 U/L (5-34); Albumin 3.4 g/dL (3.4-4.8); Alkaline Phosphatase 52 U/L (40-110); Anion Gap 12 mmol/L (10-20); BUN (Urea Nitrogen) 18 mg/dL (9.8-20.1); Bilirubin, Total 0.3 mg/dL (0.2-1.2); Calc. Creatinine Clearance 52 mL/min (70-130); Calcium 9.5 mg/dL (7.8-10.44); Carbon Dioxide 26 mmol/L (23-31); Chloride 101 mmol/L (98-107); Estimated GFR 88; Globulin 3.3 g/dL (2.4-3.5); Glucose 127 mg/dL (83-110); Protein, Total 6.7 g/dL (5.8-8.1); Sodium 135 mmol/L (136-145)
[2024-06-06 04:38] LABS: #Basophils 0.06 10x3/uL (0.0-0.2); %Basophils 0.7 % (0.0-1.0); %Eosinophils 6.3 % (0.0-10.0); %Lymphocytes 36.9 % (21.0-51.0); %Monocytes 13.2 % (0.0-10.0); %Neutrophils 42.6 % (42.0-75.0); Hematocrit 39.2 % (36.0-47.0); Hemoglobin 12.3 g/dL (12.0-16.0); Mean Corpuscular HGB CONC 31.4 g/dL (32.0-36.0); Mean Corpuscular Hemoglobin 28.1 pg (27.0-31.0); Mean Corpuscular Volume 89.7 fL (78.0-98.0); Mean Platelet Volume 9.1 fL (7.4-10.4); Platelet Count 370 10x3/uL (130-400); RBC Distribution Width 12.5 % (11.5-14.5); Red Blood Cell (RBC) Count 4.37 mill/uL (4.20-5.40)
[2024-06-06 05:40] LABS: ALT (SGPT) 7 U/L (8-55); AST (SGOT) 12 U/L (5-34); Albumin 3.1 g/dL (3.4-4.8); Alkaline Phosphatase 46 U/L (40-110); Anion Gap 13 mmol/L (10-20); BUN (Urea Nitrogen) 25 mg/dL (9.8-20.1); Bilirubin, Total 0.2 mg/dL (0.2-1.2); Calc. Creatinine Clearance 52 mL/min (70-130); Calcium 9.7 mg/dL (7.8-10.44); Carbon Dioxide 25 mmol/L (23-31); Chloride 104 mmol/L (98-107); Estimated GFR 88; Globulin 3.1 g/dL (2.4-3.5); Glucose 127 mg/dL (83-110); Potassium 3.9 mmol/L (3.5-5.1); Protein, Total 6.2 g/dL (5.8-8.1); Sodium 138 mmol/L (136-145)
[2024-06-06] MEDS ORDERED: Lorazepam 2 MG/ML VIAL SLOW IVP PRN (17:15)
[2024-06-06] MEDS: Lorazepam 2 MG/ML VIAL SLOW IVP SCH (17:32)
[2024-06-07] MEDS ORDERED: Melatonin 3 MG TAB PO SCH (01:15)
[2024-06-07 04:01] LABS: #Basophils 0.07 10x3/uL (0.0-0.2); %Basophils 0.9 % (0.0-1.0); %Eosinophils 6.6 % (0.0-10.0); %Lymphocytes 35.2 % (21.0-51.0); %Monocytes 12.5 % (0.0-10.0); %Neutrophils 44.4 % (42.0-75.0); Hematocrit 38.5 % (36.0-47.0); Mean Corpuscular HGB CONC 31.2 g/dL (32.0-36.0); Mean Platelet Volume 9.1 fL (7.4-10.4); Platelet Count 383 10x3/uL (130-400); RBC Distribution Width 12.5 % (11.5-14.5); Red Blood Cell (RBC) Count 4.28 mill/uL (4.20-5.40)
[2024-06-07 04:23] LABS: ALT (SGPT) 8 U/L (8-55); AST (SGOT) 12 U/L (5-34); Albumin 3.2 g/dL (3.4-4.8); Alkaline Phosphatase 48 U/L (40-110); Anion Gap 13 mmol/L (10-20); BUN (Urea Nitrogen) 22 mg/dL (9.8-20.1); Bilirubin, Total 0.3 mg/dL (0.2-1.2); Calc. Creatinine Clearance 58 mL/min (70-130); Calcium 9.6 mg/dL (7.8-10.44); Carbon Dioxide 26 mmol/L (23-31); Chloride 103 mmol/L (98-107); Estimated GFR 91; Globulin 3.2 g/dL (2.4-3.5); Glucose 101 mg/dL (83-110); Protein, Total 6.4 g/dL (5.8-8.1); Sodium 138 mmol/L (136-145)
[2024-06-07 16:49] VITALS: BP 112/72
[2024-06-07 22:07] VITALS: TEMP 99.4
== END 2024-06-07 22:15 | disposition swing bed (61) | DRG 64 ==
LOC: ERS 15:58 → CCU 16:41 → PCU 06-03 23:58 → 2SE 06-05 20:35
PROVIDERS: ADMIT Internal Medicine; ATTEND Internal Medicine
DX: I62.9 Nontraumatic intracranial hemorrhage, unspecified (principal); G93.6 Cerebral edema; I42.9 Cardiomyopathy, unspecified; I10 Essential (primary) hypertension; E03.9 Hypothyroidism, unspecified; E78.5 Hyperlipidemia, unspecified; J45.909 Unspecified asthma, uncomplicated; Z88.2 Allergy status to sulfonamides; Z88.0 Allergy status to penicillin; Z79.890 Hormone replacement therapy
CPT/HCPCS: 36415; 36416; 70450; 70553; 76376; 80053; 85025; 94640; 94664; 99285; J2405; J7644

== ENCOUNTER 2024-08-10 13:14 | Inpatient (IN) | payer MEDICARE, BC ==
[2024-08-10 14:11] LABS: #Basophils 0.08 10x3/uL (0.0-0.2); %Basophils 0.7 % (0.0-1.0); %Eosinophils 3.7 % (0.0-10.0); %Lymphocytes 22.1 % (21.0-51.0); %Monocytes 8.7 % (0.0-10.0); %Neutrophils 64.4 % (42.0-75.0); Hematocrit 36.7 % (36.0-47.0); Hemoglobin 11.5 g/dL (12.0-16.0); Mean Corpuscular HGB CONC 31.3 g/dL (32.0-36.0); Mean Corpuscular Hemoglobin 27.7 pg (27.0-31.0); Mean Corpuscular Volume 88.4 fL (78.0-98.0); Mean Platelet Volume 8.9 fL (7.4-10.4); Platelet Count 545 10x3/uL (130-400); RBC Distribution Width 14.2 % (11.5-14.5); Red Blood Cell (RBC) Count 4.15 mill/uL (4.20-5.40)
[2024-08-10 14:30] LABS: ALT (SGPT) 13 U/L (Less than 34); AST (SGOT) 36 U/L (11-34); Albumin 3.4 g/dL (3.1-4.5); Alkaline Phosphatase 108 U/L (40-110); Anion Gap 16 mmol/L (10-20); BUN (Urea Nitrogen) 11 mg/dL (9.8-20.1); Bilirubin, Total 0.4 mg/dL (0.3-1.2); Calc. Creatinine Clearance 0 mL/min (70-130); Calcium 9.9 mg/dL (7.8-10.44); Carbon Dioxide 22 mmol/L (23-31); Chloride 104 mmol/L (98-107); Estimated GFR 93; Globulin 3.6 g/dL (2.4-3.5); Glucose 107 mg/dL (83-110); Potassium 3.8 mmol/L (3.5-5.1); Sodium 138 mmol/L (136-145)
[2024-08-10 14:33] LABS: Troponin I 0.013 ng/mL (< 0.028)
[2024-08-10] MEDS ORDERED: Bisacodyl 5 MG TAB PO PRN (15:08)
[2024-08-10] MEDS ORDERED: Mag-Al 1200 mg/1200 mg/30 ML UDCUP PO PRN (15:08)
[2024-08-10] MEDS ORDERED: Calcium Carbonate 500 MG ChewTAB PO PRN (15:08)
[2024-08-10] MEDS ORDERED: Senokot S 8.6-50 MG TAB PO PRN (15:08)
[2024-08-10] MEDS ORDERED: Ondansetron PF 4 MG/2 ML Vial IVP PRN (15:08)
[2024-08-10] MEDS ORDERED: niCARdipine 25 MG in Sodium Chloride 0.9% 250 ML 250 ML IVPB PRN (15:08)
[2024-08-10 15:31] LABS: PTT 34.6 sec (22.9-36.1)
[2024-08-10 15:33] LABS: Prothrombin Time 13.3 sec (12.0-14.7)
[2024-08-10] MEDS ORDERED: Ondansetron PF 4 MG/2 ML Vial ONE ×2 (16:24→16:26)
[2024-08-10] MEDS ORDERED: Morphine 2 MG/ML VIAL ONE (16:26)
[2024-08-10 20:01] VITALS: BMI 21.4
[2024-08-10] MEDS ORDERED: busPIRone HCl 5 MG TAB PO SCH (21:00)
[2024-08-10] MEDS: Metoprolol Tartrate 25 MG TAB PO SCH (21:52)
[2024-08-10] MEDS: Rosuvastatin 10 MG TAB PO SCH (21:53)
[2024-08-10] MEDS: Sacubitril 24MG/Valsartan 26 MG TAB PO SCH (21:53)
[2024-08-10] MEDS: PARoxetine 20 MG TAB PO SCH (21:56)
[2024-08-10] MEDS ORDERED: Ipratropium/Albuterol 3 ML NEB NEB PRN (22:09)
[2024-08-10] MEDS: Mometasone 200 MCG/Formoterol 5 MCG 120 PUFF INHALER INH SCH (22:36)
[2024-08-11 00:46] LABS: Bilirubin Negative (Negative); Blood, Urine 1+ (Negative); Clarity Turbid (Clear); Glucose, Urine (Dipstick) Normal (Negative); Ketone, Urine 20 mg/dL (Negative); Leukocyte 250 Leu/uL (Negative); Nitrite 1+ (Negative); Protein, Urine (Dipstick) 30 mg/dL (Neg-Trace); RBC/HPF 0-3 HPF (0-3); Specific Gravity, Urine 1.017 (1.002-1.036); Urobilinogen Normal mg/dL (Less than 2); WBC/HPF Greater than 50 HPF (0-3); pH, Urine 5.5 (5.0-9.0)
[2024-08-11 01:16] LABS: Bacteria/HPF 1+ HPF (None Seen)
[2024-08-11] MEDS: Sodium Chloride 0.9% 1,000 ML IV SCH ×2 (02:46→16:57)
[2024-08-11 04:00] LABS: #Basophils 0.07 10x3/uL (0.0-0.2); %Basophils 0.6 % (0.0-1.0); %Eosinophils 2.3 % (0.0-10.0); %Lymphocytes 15.8 % (21.0-51.0); %Monocytes 8.8 % (0.0-10.0); %Neutrophils 71.9 % (42.0-75.0); Hematocrit 32.5 % (36.0-47.0); Hemoglobin 9.9 g/dL (12.0-16.0); Mean Corpuscular HGB CONC 30.5 g/dL (32.0-36.0); Mean Corpuscular Hemoglobin 27.6 pg (27.0-31.0); Mean Corpuscular Volume 90.5 fL (78.0-98.0); Mean Platelet Volume 9.1 fL (7.4-10.4); Platelet Count 452 10x3/uL (130-400); RBC Distribution Width 14.2 % (11.5-14.5); Red Blood Cell (RBC) Count 3.59 mill/uL (4.20-5.40)
[2024-08-11 04:47] LABS: ALT (SGPT) 9 U/L (Less than 34); AST (SGOT) 17 U/L (11-34); Alkaline Phosphatase 95 U/L (40-110); Anion Gap 15 mmol/L (10-20); BUN (Urea Nitrogen) 16 mg/dL (9.8-20.1); Bilirubin, Total 0.3 mg/dL (0.3-1.2); Calc. Creatinine Clearance 57 mL/min (70-130); Calcium 9.3 mg/dL (7.8-10.44); Carbon Dioxide 20 mmol/L (23-31); Cardiac Risk 4.2 (Less than 4.5); Chloride 105 mmol/L (98-107); Cholesterol 139 mg/dl (< 200 Desired); Estimated GFR 91; Globulin 3.3 g/dL (2.4-3.5); Glucose 93 mg/dL (83-110); HDL Cholesterol 33 mg/dL (>60 Neg Risk); LDL Cholesterol, Calculated 78 mg/dL; Magnesium 1.9 mg/dL (1.6-2.6); Potassium 3.8 mmol/L (3.5-5.1); Protein, Total 6.3 g/dL (5.8-8.1); Sodium 136 mmol/L (136-145); Triglycerides 140 mg/dL (Less than 150)
[2024-08-11 04:50] LABS: Hemoglobin A1c 5.6 % (4.0-6.0)
[2024-08-11] MEDS: Levothyroxine Sodium 75 MCG TAB PO SCH (05:35)
[2024-08-11] MEDS: NIFEdipine XL 90 MG ER.TAB PO SCH (08:18)
[2024-08-11] MEDS: Montelukast Sodium 10 mg Tablet PO SCH (08:18)
[2024-08-11] MEDS: Labetalol HCl 100 MG/20 ML VIAL SLOW IVP PRN (08:36)
[2024-08-11] MEDS: Acetaminophen 325 MG TAB PO PRN (08:52)
[2024-08-11] MEDS ORDERED: niCARdipine 25 MG in Sodium Chloride 0.9% 250 ML 250 ML IVPB PRN (11:57)
[2024-08-11] MEDS: traMADol HCl 50 MG TAB PO PRN (13:24)
[2024-08-12 04:39] LABS: #Basophils 0.05 10x3/uL (0.0-0.2); %Basophils 0.6 % (0.0-1.0); %Eosinophils 4.8 % (0.0-10.0); %Lymphocytes 27.7 % (21.0-51.0); %Monocytes 11.9 % (0.0-10.0); %Neutrophils 54.6 % (42.0-75.0); Hematocrit 35.6 % (36.0-47.0); Hemoglobin 11.5 g/dL (12.0-16.0); Mean Corpuscular HGB CONC 32.3 g/dL (32.0-36.0); Mean Corpuscular Volume 86.8 fL (78.0-98.0); Mean Platelet Volume 8.9 fL (7.4-10.4); Platelet Count 447 10x3/uL (130-400); RBC Distribution Width 13.7 % (11.5-14.5)
[2024-08-12 05:05] LABS: Anion Gap 14 mmol/L (10-20); BUN (Urea Nitrogen) 9 mg/dL (9.8-20.1); Calc. Creatinine Clearance 69 mL/min (70-130); Calcium 9.3 mg/dL (7.8-10.44); Carbon Dioxide 22 mmol/L (23-31); Chloride 104 mmol/L (98-107); Estimated GFR 96; Glucose 92 mg/dL (83-110); Magnesium 1.8 mg/dL (1.6-2.6); Potassium 3.6 mmol/L (3.5-5.1); Sodium 136 mmol/L (136-145)
[2024-08-12] MEDS ORDERED: Amlodipine 5 MG TAB PO SCH (09:00)
[2024-08-12] MEDS: Labetalol HCl 100 MG/20 ML VIAL SLOW IVP PRN (12:35)
[2024-08-12] MEDS: Metoprolol Tartrate 50 MG TAB PO SCH (17:14)
[2024-08-12] MEDS ORDERED: Metoprolol Tartrate 50 MG TAB PO SCH (21:00)
[2024-08-13 04:22] LABS: #Basophils 0.05 10x3/uL (0.0-0.2); %Basophils 0.7 % (0.0-1.0); %Eosinophils 4.5 % (0.0-10.0); %Lymphocytes 32.1 % (21.0-51.0); %Monocytes 12.8 % (0.0-10.0); %Neutrophils 49.4 % (42.0-75.0); Hemoglobin 11.5 g/dL (12.0-16.0); Mean Corpuscular HGB CONC 31.1 g/dL (32.0-36.0); Mean Corpuscular Hemoglobin 27.3 pg (27.0-31.0); Mean Corpuscular Volume 87.9 fL (78.0-98.0); Platelet Count 487 10x3/uL (130-400); RBC Distribution Width 13.7 % (11.5-14.5); Red Blood Cell (RBC) Count 4.21 mill/uL (4.20-5.40)
[2024-08-13 04:43] LABS: Anion Gap 14 mmol/L (10-20); BUN (Urea Nitrogen) 10 mg/dL (9.8-20.1); Calc. Creatinine Clearance 68 mL/min (70-130); Calcium 9.8 mg/dL (7.8-10.44); Carbon Dioxide 23 mmol/L (23-31); Chloride 104 mmol/L (98-107); Estimated GFR 93; Glucose 109 mg/dL (83-110); Magnesium 1.9 mg/dL (1.6-2.6); Potassium 3.6 mmol/L (3.5-5.1); Sodium 137 mmol/L (136-145)
[2024-08-13] MEDS: Metoprolol Tartrate 50 MG TAB PO SCH (09:15)
[2024-08-14 04:07] LABS: #Basophils 0.05 10x3/uL (0.0-0.2); %Basophils 0.6 % (0.0-1.0); %Eosinophils 4.4 % (0.0-10.0); %Lymphocytes 28.6 % (21.0-51.0); %Monocytes 14.6 % (0.0-10.0); %Neutrophils 51.6 % (42.0-75.0); Hematocrit 36.3 % (36.0-47.0); Hemoglobin 11.1 g/dL (12.0-16.0); Mean Corpuscular HGB CONC 30.6 g/dL (32.0-36.0); Mean Corpuscular Hemoglobin 27.1 pg (27.0-31.0); Mean Corpuscular Volume 88.8 fL (78.0-98.0); Mean Platelet Volume 9.2 fL (7.4-10.4); Platelet Count 456 10x3/uL (130-400); Red Blood Cell (RBC) Count 4.09 mill/uL (4.20-5.40)
[2024-08-14 04:51] LABS: Anion Gap 12 mmol/L (10-20); BUN (Urea Nitrogen) 21 mg/dL (9.8-20.1); Calc. Creatinine Clearance 48 mL/min (70-130); Calcium 9.7 mg/dL (7.8-10.44); Carbon Dioxide 27 mmol/L (23-31); Chloride 104 mmol/L (98-107); Estimated GFR 80; Glucose 115 mg/dL (83-110); Potassium 3.6 mmol/L (3.5-5.1); Sodium 139 mmol/L (136-145)
[2024-08-14 18:59] VITALS: BP 131/72; TEMP 97.4
== END 2024-08-14 19:24 | DRG 65 ==
LOC: ERS 13:14 → SUATTDRO 13:14 → CCU 15:07 → 2SE 08-11 17:36
PROVIDERS: ADMIT Internal Medicine; ATTEND Internal Medicine
DX: I61.5 Nontraumatic intracerebral hemorrhage, intraventricular (principal); E85.4 Organ-limited amyloidosis; I50.22 Chronic systolic (congestive) heart failure; S42.302A Unspecified fracture of shaft of humerus, left arm, initial encounter for closed fracture; I68.0 Cerebral amyloid angiopathy; I11.0 Hypertensive heart disease with heart failure; I25.10 Atherosclerotic heart disease of native coronary artery without angina pectoris; E78.5 Hyperlipidemia, unspecified; H53.9 Unspecified visual disturbance; R41.82 Altered mental status, unspecified; E03.9 Hypothyroidism, unspecified; J44.89 Other specified chronic obstructive pulmonary disease; R29.810 Facial weakness; Z79.890 Hormone replacement therapy; Z79.899 Other long term (current) drug therapy
CPT/HCPCS: 36415; 36416; 70450; 71045; 80048; 80053; 80061; 81003; 81015; 83036; 83735; 84443; 84484; 85025; 85610; 85730; 93005; J2272; J2405; J7030